=== PATIENT | female | born 1990 | race Two or more races ===

== ENCOUNTER 2019-05-11 21:29 | Inpatient (IN) | payer MEDICAID, OTHER ==
[~2019-05-11] VITALS: Ht 167.6 cm; Wt 68.0 kg
[2019-05-11] MEDS ORDERED: LORazepam 2MG/ML-1ML VIAL ONE (22:13)
[2019-05-11] MEDS ORDERED: LORazepam 2MG/ML-1ML VIAL IV ONE (23:00)
[2019-05-11] MEDS ORDERED: NALOXONE HCL 0.4 MG/ML VIAL IV ONE (23:00)
[2019-05-11 23:23] LABS: Amphetamine Screen, Urine NEGATIVE (NEGATIVE); Barbiturate Scree,Urine NEGATIVE (NEGATIVE); Benzodiazephine Screen, Urine POSITIVE (NEGATIVE); Cannabinoid Screen, Urine NEGATIVE (NEGATIVE); Cocaine Screen, Urine NEGATIVE (NEGATIVE); Opiate Scree,Urine NEGATIVE (NEGATIVE); Phencyclidine Screen, Urine NEGATIVE (NEGATIVE)
[2019-05-11 23:34] LABS: Basophils # (auto) 0 uL; Basophils % (auto) 0.9 % (0.0-2.0); Eosinophils # (auto) 0 uL; Eosinophils % (auto) 0.9 % (0.0-7.0); Hematocrit 34.4 % (36.0-46.0); Hemoglobin 11.6 g/dL (12.2-16.2); Lymphocytes % (auto) 47.2 % (10.0-50.0); Mean Corpuscular Hemoglobin 28.1 pg (28.0-32.0); Mean Corpuscular Hgb Conc. 33.6 g/dL (32.0-36.0); Mean Corpuscular Volume 83.8 fL (80.0-100.0); Monocytes # (auto) 0.4 uL; Monocytes % (auto) 9.7 % (0.0-12.0); Neutrophils # (auto) 1.8 uL; Neutrophils % (auto) 41.3 % (37.0-80.0); Platelet Count (auto) 261 10^3/uL (140-450); Red Blood Cells 4.11 10^6/uL (4.0-5.20); Red Cell Distribution Width 19.3 % (11.8-14.3); White Blood Cell 4.3 10^3/uL (4.4-10.8)
[2019-05-11 23:48] LABS: Albumin 3.6 g/dL (3.4-5.0); Calcium 8.5 mg/dL (8.5-10.1); Potassium 3.1 mmol/L (3.5-5.1)
[2019-05-11 23:49] LABS: Salicylate < 1.7 mg/dL (2.8-20.0)
[2019-05-11 23:50] LABS: BUN/Creatinine Ratio 13.5
[2019-05-11 23:51] LABS: Acetaminophen < 2.0 ug/mL (10-30)
[2019-05-11 23:52] LABS: Bilirubin, Total 0.1 mg/dL (0.2-1.0); Total Protein 7.4 g/dL (6.4-8.2)
[2019-05-12] MEDS ORDERED: LEVETIRACETAM 500 MG/5ML INJ IV ONE (00:27)
[2019-05-12] MEDS ORDERED: LEVETIRACETAM INJ 1,000 MG in D5W 5% 100 ML IV ONE (00:30)
[2019-05-12] MEDS ORDERED: SODIUM CHLORIDE 0.9% 3,000 ML IV ONE (01:45)
[2019-05-12] MEDS ORDERED: SODIUM CHLORIDE 0.9% 1,000 ML IV ONE (02:15)
[2019-05-12] MEDS ORDERED: MORPHINE SULFATE 4 MG/ML SYR/VIAL IV PRN (02:45)
[2019-05-12] MEDS ORDERED: LORazepam 2MG/ML-1ML VIAL IV PRN ×2 (02:45→05:45)
[2019-05-12] MEDS ORDERED: HYDROcodone-ACET 5/325MG TAB PO PRN (02:45)
[2019-05-12] MEDS ORDERED: DEXTROSE 50% SYRINGE 50 ML IV ONE (05:21)
[2019-05-12] MEDS ORDERED: LORazepam 2MG/ML-1ML VIAL ONE (05:29)
[2019-05-12] MEDS ORDERED: DEXTROSE (50%) 50ML SYRG IV ONE (05:45)
[2019-05-12] MEDS ORDERED: LORazepam 2MG/ML-1ML VIAL IV SCH (06:00)
[2019-05-12] MEDS: SODIUM CHLORIDE 0.9% 1,000 ML IV SCH ×4 (07:31→22:31)
[2019-05-12 08:40] VITALS: BP 84/46
[2019-05-12] MEDS: LEVETIRACETAM INJ 1,000 MG in D5W 5% 100 ML IV SCH ×2 (09:21→21:10)
[2019-05-12] MEDS: ONDANSETRON HCL 4 MG/2 ML VIAL IV PRN ×4 (09:22→23:30)
[2019-05-12] MEDS: LORazepam 2MG/ML-1ML VIAL IV PRN ×4 (09:49→23:43)
[2019-05-12 10:29] LABS: Basophils # (auto) 0 uL; Basophils % (auto) 1.1 % (0.0-2.0); Eosinophils # (auto) 0 uL; Eosinophils % (auto) 1.2 % (0.0-7.0); Hematocrit 27.7 % (36.0-46.0); Hemoglobin 9.1 g/dL (12.2-16.2); Lymphocytes # (auto) 1.9 uL; Lymphocytes % (auto) 44.9 % (10.0-50.0); Mean Corpuscular Hemoglobin 27.7 pg (28.0-32.0); Mean Corpuscular Hgb Conc. 32.8 g/dL (32.0-36.0); Mean Corpuscular Volume 84.3 fL (80.0-100.0); Monocytes # (auto) 0.4 uL; Monocytes % (auto) 9.8 % (0.0-12.0); Neutrophils # (auto) 1.8 uL; Platelet Count (auto) 227 10^3/uL (140-450); Red Blood Cells 3.28 10^6/uL (4.0-5.20); Red Cell Distribution Width 19.2 % (11.8-14.3); White Blood Cell 4.2 10^3/uL (4.4-10.8)
[2019-05-12 10:46] LABS: BUN/Creatinine Ratio 19.6; Calcium 7.2 mg/dL (8.5-10.1); Potassium 3.5 mmol/L (3.5-5.1)
[2019-05-12 14:00] VITALS: BP 108/63
[2019-05-12 17:00] VITALS: BP 106/66
[2019-05-12] MEDS: ACETAMINOPHEN 325 MG TAB PO PRN (18:00)
[2019-05-12] MEDS: FOLIC ACID 1 MG, MULTIPLE VITAMIN 10 ML, MAGNESIUM SULF SDV 50% 8 MEQ, THIAMINE INJ 100... INJ SCH ×5 (18:15)
[2019-05-12] MEDS: LORazepam 0.5 MG TAB PO PRN (21:21)
[2019-05-12 22:00] VITALS: BP 111/71
[2019-05-13] MEDS: SODIUM CHLORIDE 0.9% 1,000 ML IV SCH ×4 (03:31→16:10)
[2019-05-13] MEDS: LORazepam 0.5 MG TAB PO PRN ×2 (04:11→16:55)
[2019-05-13 05:00] VITALS: BP 106/72
[2019-05-13 05:43] LABS: Basophils # (auto) 0 uL; Eosinophils # (auto) 0.1 uL; Eosinophils % (auto) 1.4 % (0.0-7.0); Hematocrit 31.3 % (36.0-46.0); Hemoglobin 10.2 g/dL (12.2-16.2); Lymphocytes # (auto) 2.1 uL; Lymphocytes % (auto) 45.7 % (10.0-50.0); Mean Corpuscular Hemoglobin 27.4 pg (28.0-32.0); Mean Corpuscular Hgb Conc. 32.8 g/dL (32.0-36.0); Mean Corpuscular Volume 83.7 fL (80.0-100.0); Monocytes # (auto) 0.6 uL; Monocytes % (auto) 13.6 % (0.0-12.0); Neutrophils # (auto) 1.8 uL; Neutrophils % (auto) 38.3 % (37.0-80.0); Nucleated Red Blood Cells % 0.2 %; Platelet Count (auto) 251 10^3/uL (140-450); Red Blood Cells 3.74 10^6/uL (4.0-5.20); Red Cell Distribution Width 18.3 % (11.8-14.3); White Blood Cell 4.7 10^3/uL (4.4-10.8)
[2019-05-13 05:51] LABS: INR 1.01 (0.9-1.15)
[2019-05-13 05:54] LABS: Calcium 7.8 mg/dL (8.5-10.1); Potassium 3.1 mmol/L (3.5-5.1)
[2019-05-13 05:58] LABS: BUN/Creatinine Ratio 8.7; Bilirubin, Total 0.6 mg/dL (0.2-1.0); Total Protein 6.3 g/dL (6.4-8.2)
[2019-05-13 08:44] VITALS: BP 98/63
[2019-05-13] MEDS: ACETAMINOPHEN 325 MG TAB PO PRN (09:12)
[2019-05-13] MEDS: ONDANSETRON HCL 4 MG/2 ML VIAL IV PRN ×2 (09:12→16:55)
[2019-05-13] MEDS: LEVETIRACETAM INJ 1,000 MG in D5W 5% 100 ML IV SCH (09:29)
[2019-05-13] MEDS: LORazepam 2MG/ML-1ML VIAL IV PRN (11:08)
[2019-05-13] MEDS: FOLIC ACID 1 MG, MULTIPLE VITAMIN 10 ML, MAGNESIUM SULF SDV 50% 8 MEQ, THIAMINE INJ 100... INJ SCH ×5 (11:09)
[2019-05-13 13:00] VITALS: BP 116/73
[2019-05-13] MEDS ORDERED: POTASSIUM EFFERVESENT TAB 25 MEQ PO ONE (14:30)
[2019-05-13 15:58] VITALS: BP 116/73
[2019-05-13 17:00] VITALS: BP 121/83
== END 2019-05-13 18:00 | disposition home or self-care (01) | DRG 53 ==
LOC: EDBD 21:29 → ER 21:29 → TELE 21:30 → TELE-WESTW 05-12 05:03
PROVIDERS: ADMIT Hospitalist; ATTEND Hospitalist
DX: G40.909 Epilepsy, unspecified, not intractable, without status epilepticus (principal); F10.231 Alcohol dependence with withdrawal delirium; E44.0 Moderate protein-calorie malnutrition; G93.41 Metabolic encephalopathy; E83.51 Hypocalcemia; E87.6 Hypokalemia; Z68.24 Body mass index [BMI] 24.0-24.9, adult
CPT/HCPCS: 36415; 70450; 71045; 80048; 80053; 80307; 80320; 80329; 83036; 84443; 84702; 85025; 85610; 99291; G0378; J2405; J7060